=== PATIENT | female | born 1975 | race Caucasian/White ===

== ENCOUNTER 2019-07-24 08:55 | Day surgery (SDC) | payer OTHER, SELFPAY ==
[2019-07-22 09:47] LABS: BASOPHILS # (AUTO) 0.1 K/uL (0.0-0.2); BASOPHILS % (AUTO) 1.5 % (0.0-2.0); EOSINOPHILS # (AUTO) 0.2 K/uL (0.0-0.4); EOSINOPHILS % (AUTO) 4.9 % (0.0-4.0); HEMATOCRIT 41.3 % (36-48); HEMOGLOBIN 13.5 g/dL (12.0-16.0); LYMPHOCYTES # (AUTO) 1.8 K/uL (1.0-5.5); LYMPHOCYTES % (AUTO) 36.4 % (20.5-51.5); MEAN CORPUSCULAR HEMOGLOBIN 28 pg (27-31); MEAN CORPUSCULAR HGB CONC 33 % (32-36); MEAN CORPUSCULAR VOLUME 85 fL (79.0-98.0); MONOCYTES # (AUTO) 0.3 K/uL (0.0-1.0); NEUTROPHILS # (AUTO) 2.6 K/uL (1.8-7.7); NEUTROPHILS % (AUTO) 51.2 % (40.0-70.0); PLATELET COUNT (AUTO) 342 K/uL (130-430); RED BLOOD CELL COUNT(AUTO) 4.86 MIL/uL (4.2-6.2); RED CELL DISTRIBUTION WIDTH 27.1 % (9.0-15.0)
[2019-07-22 10:02] LABS: BILIRUBIN,URINE NEGATIVE (NEGATIVE); BLOOD, URINE 1+ (NEGATIVE); CLARITY/URINE CLEAR (CLEAR); COLOR,URINE YELLOW (YELLOW); GLUCOSE,URINE NEGATIVE (NEGATIVE); KETONES,URINE NEGATIVE (NEGATIVE); LEUKOCYTE ESTERASE ,URINE 1+ (NEGATIVE); NITRITE, URINE NEGATIVE (NEGATIVE); PH,URINE 7.5 (5.0-8.0); PROTEIN URINE NEGATIVE (NEGATIVE); UROBILINOGEN,URINE 0.2 (0.2-1.0)
[2019-07-22 10:08] LABS: BACTERIA,URINE FEW /HPF (None Seen); MUCUS,URINE 1+ /LPF (None Seen)
[~2019-07-24] VITALS: Ht 157.5 cm; Wt 81.6 kg
[~2019-07-24 08:55] MED LIST: CEFAZOLIN SOD 2 GM in D5W 50 ML IV ONE
[2019-07-24] MEDS ORDERED: IBUP-1970 PO (10:03)
[2019-07-24] MEDS ORDERED: FERR-69 PO (10:03)
[2019-07-24] MEDS ORDERED: ROCURONIUM BROMIDE 10 MG/ML (ZEMURON) IV ONE (12:03)
[2019-07-24] MEDS ORDERED: ePHEDrine sulfate 50 MG/ML VIAL IVP ONE (12:03)
[2019-07-24] MEDS ORDERED: MORPHINE SULFATE 10MG/10ML PF AMP EP ONE (12:03)
[2019-07-24] MEDS ORDERED: NS IRRIG SOLN 1000 ML IR ONE (12:03)
[2019-07-24] MEDS ORDERED: SEVOFLURANE 15 MIN GAS INH ONE (12:03)
[2019-07-24] MEDS ORDERED: BUPIVACAINE /PF 0.5% 30 ML VIAL INJ ONE (12:03)
[2019-07-24] MEDS ORDERED: SUGAMMADEX SODIUM 200 MG/2 ML VIAL IV ONE (12:03)
[2019-07-24] MEDS ORDERED: LR 1,000 ML IV.SOLN IV ONE (12:03)
[2019-07-24] MEDS ORDERED: ROPIVACAINE HCL/PF 0.2% EPIDURAL 200 ML PLAST..BAG EP ONE (12:03)
[2019-07-24] MEDS ORDERED: DEXAMETHASONE SOD PHOSPHATE 4 MG/ML VIAL IVP ONE (12:03)
[2019-07-24] MEDS ORDERED: PROPOFOL 200MG/ 20ML VIAL (DIPRIVAN) IV ONE (12:03)
[2019-07-24] MEDS ORDERED: MIDAZOLAM HCL 5 MG/5 ML VIAL IVP ONE (12:03)
[2019-07-24] MEDS ORDERED: HYDROmorphone 2 MG/ML VIAL IVP PRN ×2 (14:00)
[2019-07-24] MEDS ORDERED: HYDROcodone/ACETAMIN 5-325 MG TAB (NORCO/ VICODIN) PO PRN (14:00)
[2019-07-24] MEDS ORDERED: OXYCODONE/ACETAMINOPHEN 5-325 TABLET PO PRN ×4 (14:00)
[2019-07-24] MEDS ORDERED: ONDANSETRON HCL 4 MG/2 ML VIAL IVP PRN ×2 (14:00)
[2019-07-24] MEDS ORDERED: HYDROmorphone 1 MG INJ. 1 MG/ML AMPUL ONE (14:26)
--- NOTE | 2019-07-24 15:25 | NUR ---
POST OP ADMISSION NOTES: RECEIVED REPORT FROM RECOVERY ROOM NURSE SOONY.POST OP VITAL SIGNS TAKEN,AFEBRILE. AAOX3. S/P TOTAL ABDOMINAL HYSTERECTOMY WITH BILATERAL SALPINGECTOMY UNDER GENERAL/SPINAL ANESTHESIA.WITH ON Q PUMP X 2 AT 7CC/H ORDERED,IN PLACE. LOWER ABDOMINAL INCISION ,WITH SURGICAL DRESSING CLEAN AND DRY.BARRAZA DRAINING T YELLOW URINE. IV FLUIDS RUNNING AT LEFT HAND,INTACT. BILATERAL SCD,S ON LE.DENIES ANY PAIN. CONTINUE TO MONITOR.
[2019-07-24] MEDS: CEFAZOLIN 1 GM IVPB PREMIX 50 ML IV SCH ×2 (17:03→21:57)
[2019-07-24] MEDS: LR 1,000 ML IV SCH ×2 (17:03→22:57)
--- NOTE | 2019-07-24 18:53 | NUR ---
END OF SHIFT: PATIENT FULLY AWAKE.STARTED ON CLEAR LIQUID,WELL TOLERATED. NO COMPLAINED MADE. CALL LIGHT WITH IN REACH. BED LOCKED AT LOWEST POSITION. BARRAZA IN PLACE. LOWER ABDOMEN DRESSING CLEAN AND DRY.ON Q PUMP X 2 INTACT,AT 7CC/H.NOT IN ANY DISTRESS.
[2019-07-24] MEDS ORDERED: SENNOSIDES/DOCUSATE SODIUM 1 TAB TABLET(SENOKOT-S) PO PRN (21:00)
[2019-07-24] MEDS ORDERED: TEMAZEPAM 15 MG CAPSULE PO PRN (21:00)
[2019-07-25 01:22] VITALS: BP_SYST 98
[2019-07-25] MEDS: LR 1,000 ML IV SCH ×2 (05:51→11:35)
--- NOTE | 2019-07-25 06:08 | NUR ---
Pt sitting on side of bed dangling feet. No c/o pain or discomfort. Call light in reach should pt need assistance from staff.
--- NOTE | 2019-07-25 07:05 | NUR ---
BARRAZA CATHETER DC : PER ORDER ,BARRAZA CATH DCD AFTER EXPLAINING TO THE PT . PT TOLERATED IT WELL , NO C/O ANY PAIN NOTICED , 400 CC OUTPUT DRAINED ; PT IS COMFORTABLE ; PRIMARY RN NOTIFIED .
--- NOTE | 2019-07-25 07:07 | NUR ---
Card Catheter discontinued by pipe testing technician.
[2019-07-25 08:05] VITALS: BP_SYST 127
--- NOTE | 2019-07-25 08:59 | NUR ---
Nutrition Update Josh Scale 18 noted. Pt admitted for submucous leiomyoma of uterus Diet: clear liquid BMI: 32.9 kg/m2 RD to follow per nutrition care standards.
--- NOTE | 2019-07-25 09:50 | NUR ---
Routine Patient sitting in chair at bedside. Complained of mild abdominal pain/cramps. Patient stable.
--- NOTE | 2019-07-25 11:37 | NUR ---
Routine Patient ambulated to bathroom and back to bed. Patient medicated for 7/10 abdominal and back pain. Patient stable at this time.
[2019-07-25 12:00] VITALS: BP_SYST 121
--- NOTE | 2019-07-25 13:00 | NUR ---
Routine Patient resting comfortably in bed with no distress noted. Patient stable at this time.
[2019-07-25] MEDS ORDERED: COMMUNICATION ORDER XX ONE (13:15)
[2019-07-25] MEDS ORDERED: ON Q PUMP ID ONE ×2 (13:30→13:45)
[2019-07-25] MEDS ORDERED: ROPIVACAINE 0.2% ID ONE ×2 (13:30→13:45)
--- NOTE | 2019-07-25 13:50 | NUR ---
Routine Jesus, OR nurse came to patient's room and changed the 'Q' pump. Patient resting in bed with no complaint of pain.
[2019-07-25 14:50] VITALS: BP_SYST 121
--- NOTE | 2019-07-25 15:45 | NUR ---
Discharge instructions Both written and verbal discharge instructions given to patient. Patient verbalized understanding of instructions. Patient states prescriptions for percocet and norco were given to her earlier this week by Dr. De Santiago. States prescriptions already filled. All belongings with patient.
--- NOTE | 2019-07-25 16:18 | NUR ---
Discharge Peripheral IV removed intact with no active bleeding. Patient tolerated well. Patient discharged to home in stable condition.
== END 2019-07-25 16:18 | disposition home or self-care (01) ==
LOC: SDS 08:55 → SMU 08:55 → EDSTATUS 10:30 → SMU 15:44 → SDS 07-25 16:18
PROVIDERS: ATTEND Specialist
DX: N92.0 Excessive and frequent menstruation with regular cycle (principal); N85.2 Hypertrophy of uterus; D25.0 Submucous leiomyoma of uterus; D50.0 Iron deficiency anemia secondary to blood loss (chronic)
CPT/HCPCS: 36415; 58150; 81000; 84703; 85025; 87081; 88307; C9399; J0690 ×2; J1100; J1170; J2250; J2274; J2405; J2704; J2795; J3490; J7060; J7120 ×2